=== PATIENT | female | born 1945 | race Hispanic/Latino ===

== ENCOUNTER 2021-01-02 16:21 | Emergency (ER) | payer MEDICARE ==
[~2021-01-02] VITALS: Ht 144.8 cm; Wt 81.6 kg
[2021-01-02] MEDS ORDERED: CEFDINIR300 MG PO (17:46)
[2021-01-02] MEDS ORDERED: OXYBUTYNIN CHLOR5 MG PO (17:48)
== END 2021-01-02 18:00 | disposition home or self-care (01) ==
LOC: FSED 16:30
DX: R32 Unspecified urinary incontinence (principal); R35.0 Frequency of micturition; N39.0 Urinary tract infection, site not specified; K59.00 Constipation, unspecified; E11.9 Type 2 diabetes mellitus without complications; I10 Essential (primary) hypertension; F41.9 Anxiety disorder, unspecified; Z87.442 Personal history of urinary calculi; M19.90 Unspecified osteoarthritis, unspecified site
CPT/HCPCS: 81003; 99282

== ENCOUNTER 2022-10-02 09:52 | Emergency (ER) | payer MEDICARE ==
[~2022-10-02] VITALS: Ht 152.4 cm; Wt 70.9 kg
[~2022-10-02 09:52] MED LIST: CEFDINIR300 MG PO; OXYBUTYNIN CHLOR5 MG PO
[2022-10-02] MEDS ORDERED: MELOXICAM7.5 MG PO (10:26)
[2022-10-02] MEDS ORDERED: BACLOFEN10 MG PO (10:26)
[2022-10-02] MEDS ORDERED: OZEMPIC0.25 MG/0. SC (10:26)
[2022-10-02] MEDS ORDERED: ATORVASTATIN CA20 MG PO (10:26)
[2022-10-02] MEDS ORDERED: BYDUREON B2 MG/0.85 (11:52)
[2022-10-02] MEDS ORDERED: VITAMIN D362.5 MC1 (11:52)
[2022-10-02] MEDS ORDERED: TRAZODONE HCL50 MG PO (11:52)
[2022-10-02] MEDS ORDERED: LISINOPRIL10 MG PO (11:52)
[2022-10-02] MEDS ORDERED: BYETTA5 MCG/0.02 (11:52)
[2022-10-02] MEDS ORDERED: ESTRACE1 MG PO (11:52)
[2022-10-02] MEDS ORDERED: VENLAFAXINE HCL75 M2 PO (11:52)
[2022-10-02] MEDS ORDERED: HYDROCODON-ACE1 EA11 PO (12:58)
[2022-10-02] MEDS ORDERED: CYCLOBENZAPRINE5 MG PO (13:02)
== END 2022-10-02 13:11 | disposition home or self-care (01) ==
LOC: FSED 09:58
DX: M25.512 Pain in left shoulder (principal); M19.012 Primary osteoarthritis, left shoulder; I10 Essential (primary) hypertension; E11.9 Type 2 diabetes mellitus without complications; E78.5 Hyperlipidemia, unspecified; F41.9 Anxiety disorder, unspecified; Z87.442 Personal history of urinary calculi
CPT/HCPCS: 99283